=== PATIENT | male | born 1980 | race African-American/Black ===

== ENCOUNTER 2021-02-18 10:31 | Emergency (ER) | payer SELFPAY ==
[~2021-02-18] VITALS: Ht 177.8 cm; Wt 99.8 kg
[2021-02-18 10:34] VITALS: BP 115/51
[2021-02-18] MEDS ORDERED: ACETAMINOPHEN 500 MG TAB PO ONE (11:30)
== END 2021-02-18 13:35 | disposition home or self-care (01) ==
LOC: ER 10:31
DX: J03.90 Acute tonsillitis, unspecified (principal); Z20.822 Contact with and (suspected) exposure to COVID-19
CPT/HCPCS: 36415; 71045; 87426; 99284; C9803; U0003